=== PATIENT | female | born 1940 | race Caucasian/White ===

== ENCOUNTER 2018-07-14 13:56 | Emergency (ER) | payer MEDICARE ==
[~2018-07-14] VITALS: Wt 77.1 kg
--- NOTE | ~2018-07-14 | EKG ---
[place], [place] ELECTROCARDIOGRAM REPORT NAME: SUSAN OLIVO UNIT #: [id number] ROOM: DOCTOR: EPIPHANY DRAFT REPORT BIRTHDATE: [birth year] [facility] Test Date: 2018-07-14 Test Time: 16:39:46 Pat Name: SUSAN OLIVO Department: Room: Gender: F Deicer Finisher: 19 : 1940 Requested By: CARYN NICHOLSON Order Number: [id number] Reading MD: Briana Amin MD Measurements Intervals Strang Rate: 78 P: 61 AK: 153 QRS: -12 QRSD: 88 T: 43 QT: 390 QTc: 445 Interpretive Statements Sinus rhythm No previous ECG available for comparison Electronically Signed On 07-17-2018 11:56:55 PST by Briana Amin MD CM:EKGRPT:ELECTROCARDIOGRAM REPORT [id number] CARYN NICHOLSON EPIPHANY DRAFT REPORT CARYN NICHOLSON
[2018-07-14 13:57] VITALS: BP 150/90
[2018-07-14 16:55] LABS: BASO % 0.3 % (0.0-1.0); EOS # 0.1 10*3/uL (0.0-0.4); EOS % 0.6 % (1.0-4.0); HEMATOCRIT 39.6 % (37.0-47.0); HEMOGLOBIN 12.9 g/dl (12.0-16.0); LYMPH # 1.8 10*3/uL (1.3-4.4); LYMPH % 14.8 % (27.0-41.0); MEAN CORPUSCULAR HGB 30.9 pg (27.0-31.0); MEAN CORPUSCULAR HGB CONC 32.6 g/dl (33.0-37.0); MEAN PLATELET VOLUME 9.9 fl (9.6-12.3); MONO # 0.8 10*3/uL (0.1-1.0); MONO % 6.9 % (3.0-9.0); NEUT # 9.2 10*3/uL (2.3-7.9); NEUT % 77.1 % (47.0-73.0); PLATELET COUNT AUTOMATED 257 10*3/uL (130-400); RED BLOOD COUNT 4.17 10*6/uL (4.10-5.10); RED CELL DISTRI WIDTH 13.2 % (0-14.5); WHITE BLOOD COUNT 11.9 10*3/uL (4.8-10.8)
[2018-07-14 17:10] LABS: ACT PARTIAL THROMBO TIME 24.4 SECONDS (20.8-31.5); INTERNATIONAL NORM RATIO 0.9 (2.0-3.5)
[2018-07-14 17:11] LABS: ALBUMIN 3.4 gm/dl (3.1-4.5); ALKALINE PHOSPHATASE 91 U/L (45-117); BUN 13 mg/dl (7-24); CHLORIDE 106 mmol/L (98-107); CREATININE 0.83 mg/dL (0.55-1.02); POTASSIUM 3.8 mmol/L (3.5-5.1); SGOT/AST 12 IU/L (3-35); SGPT/ALT 26 U/L (12-78); SODIUM 139 mmol/L (136-145); TOTAL PROTEIN 7.3 gm/dL (6.4-8.2)
[2018-07-14 17:12] LABS: TROPONIN I < 0.015 ng/ml (<0.045)
[2018-07-14] MEDS ORDERED: PREDNISONE10 MG PO (17:50)
[2018-07-14] MEDS ORDERED: NAPROSYN500 MG PO (17:50)
== END 2018-07-14 17:47 | disposition home or self-care (01) ==
LOC: ED 13:56
PROVIDERS: Nurse Practitioner
DX: M75.31 Calcific tendinitis of right shoulder (principal); Z90.710 Acquired absence of both cervix and uterus; Z90.49 Acquired absence of other specified parts of digestive tract

== ENCOUNTER 2021-07-20 15:30 | Emergency (ER) | payer MEDICARE ==
[~2021-07-20] VITALS: Ht 157.4 cm; Wt 72.6 kg
[~2021-07-20 15:30] MED LIST: NAPROSYN500 MG PO; PREDNISONE10 MG PO
[2021-07-20 15:57] LABS: BASO % 0.4 % (0.0-1.0); EOS # 0.1 10*3/uL (0.0-0.4); EOS % 0.9 % (1.0-4.0); HEMATOCRIT 41.3 % (37.0-47.0); LYMPH # 1.6 10*3/uL (1.3-4.4); LYMPH % 15.8 % (27.0-41.0); MEAN CELL VOLUME 94.3 fl (81.0-99.0); MEAN CORPUSCULAR HGB 31.3 pg (27.0-31.0); MEAN CORPUSCULAR HGB CONC 33.2 g/dl (33.0-37.0); MEAN PLATELET VOLUME 9.8 fl (9.6-12.3); MONO # 0.5 10*3/uL (0.1-1.0); MONO % 4.9 % (3.0-9.0); NEUT # 7.6 10*3/uL (2.3-7.9); NEUT % 77.3 % (47.0-73.0); PLATELET COUNT AUTOMATED 261 10*3/uL (130-400); RED BLOOD COUNT 4.38 10*6/uL (4.10-5.10); WHITE BLOOD COUNT 9.9 10*3/uL (4.8-10.8)
[2021-07-20 16:18] LABS: ALBUMIN 3.3 gm/dl (3.1-4.5); ALKALINE PHOSPHATASE 88 U/L (45-117); BUN 13 mg/dl (7-24); CHLORIDE 110 mmol/L (98-107); CREATININE 0.84 mg/dL (0.55-1.02); POTASSIUM 3.8 mmol/L (3.5-5.1); SGOT/AST 16 IU/L (3-35); SGPT/ALT 23 U/L (12-78); SODIUM 142 mmol/L (136-145); TOTAL PROTEIN 7.3 gm/dL (6.4-8.2)
[2021-07-20] MEDS ORDERED: MOTION-TIME25 M2 PO (17:05)
[2021-07-20] MEDS ORDERED: ZOFRAN4 MG PO (17:06)
[2021-07-20 18:13] VITALS: BP 125/98
== END 2021-07-20 17:13 | disposition home or self-care (01) ==
LOC: ED 15:30
PROVIDERS: Student in an Organized Health Care Education/Training Program
DX: R42 Dizziness and giddiness (principal); Z91.040 Latex allergy status

== ENCOUNTER → 2022-05-10 | Day surgery (SDC) | payer MEDICARE ==
[~2022-05-10] VITALS: Ht 160 cm; Wt 70.3 kg
[~2022-05-10] MED LIST changes: +MOTION-TIME25 M2 PO; +NORVASC5 MG PO; +PRILOSEC20 M1 PO; +ZOFRAN4 MG PO
[2022-05-10 08:35] VITALS: BP 147/87
[2022-05-10 09:45] VITALS: BP 121/76
[2022-05-10 09:57] VITALS: BP 131/77
[2022-05-10 10:15] VITALS: BP 134/77
== END | disposition home or self-care (01) ==
LOC: SDC 05-06 10:15
PROVIDERS: ATTEND Specialist
DX: H83.02 Labyrinthitis, left ear (principal); H81.312 Aural vertigo, left ear; I10 Essential (primary) hypertension; K21.9 Gastro-esophageal reflux disease without esophagitis; Z85.118 Personal history of other malignant neoplasm of bronchus and lung

== ENCOUNTER → 2022-10-11 | Day surgery (SDC) | payer MEDICARE ==
[~2022-10-11] VITALS: Ht 160 cm; Wt 70.3 kg
[~2022-10-11] MED LIST changes: +PREDNISONE5 MG PO
[2022-10-11 10:00] VITALS: BP 134/77
[2022-10-11 10:43] VITALS: BP 108/67
[2022-10-11 10:58] VITALS: BP 111/72
[2022-10-11 11:13] VITALS: BP 140/76
== END | disposition home or self-care (01) ==
LOC: SDC 10-06 11:45
PROVIDERS: ATTEND Specialist
DX: H83.02 Labyrinthitis, left ear (principal); H81.312 Aural vertigo, left ear; I10 Essential (primary) hypertension; K21.9 Gastro-esophageal reflux disease without esophagitis